=== PATIENT | male | born 1975 | race Asian ===

== ENCOUNTER → 2018-03-04 | Day surgery (SDC) | payer OTHER ==
[~2018-03-04] MED LIST: IV RINGERS,LACTATED 1000ML 1,000 ML IV SCH; LIDOCAINE 1% PF 2 ML VIAL. ID PRN; MIDAZOLAM HCL/PF 2 MG/2 ML VIAL. IV PRN; PROPOFOL 40 ML IV ONE; SIMV40TA3 PO; VITA1TAB3 PO; fentaNYL PF VIAL 100 MCG/2 ML VIAL IV PRN
[2018-03-04 14:10] VITALS: BP 114/69
== END | disposition home or self-care (01) ==
LOC: SURG 12:02
PROVIDERS: ATTEND Internal Medicine Gastroenterology
DX: K64.1 Second degree hemorrhoids (principal); Z90.49 Acquired absence of other specified parts of digestive tract; Z86.19 Personal history of other infectious and parasitic diseases; E78.00 Pure hypercholesterolemia, unspecified; G47.30 Sleep apnea, unspecified; Z86.010 Personal history of colon polyps; Z79.899 Other long term (current) drug therapy; Z98.52 Vasectomy status
CPT/HCPCS: 45378; J2704

== ENCOUNTER → 2018-03-25 | Day surgery (SDC) | payer OTHER ==
[~2018-03-25] MED LIST changes: +HYDROmorphone 2 MG/ML VIAL IV PRN; +MORPHINE SULFATE 2 MG/ML VIAL. IV PRN; +ONDANSETRON PF 4 MG/2 ML VIAL. IV PRN; +PROCHLORPERAZINE 10 MG/2 ML VIAL. IV PRN; +PROPOFOL 20 ML IV ONE; -PROPOFOL 40 ML IV ONE
[2018-03-25 14:05] VITALS: BP 108/62
--- NOTE | 2018-03-26 14:10 | PATHOLOGY ---
[facility] Accession Number: [id number] . 01 Material submitted: . PART A: ANTRAL BIOPSY PART B: DISTAL ESOPHAGUS . 01 Clinical history: . GERD . 02 Diagnosis: A. Gastric biopsies, antrum: - Superficial congestion and slight chronic inflammation with focal intestinal metaplasia. . B. Esophageal biopsies, distal esophagus: - Segments of hyperplastic squamous esophageal mucosa consistent with reflux esophagitis. (JPM:kandace; 03/26/2018) QMS/03/26/2018 . 02 Comment: Sections of the gastric biopsy reveal segments of gastric body mucosa showing superficial congestion and slight chronic inflammation with few minute foci of intestinal metaplasia. A properly controlled immunoperoxidase stain for Helicobacter is negative for Helicobacter organisms. . Sections of the distal esophageal biopsy reveal segments of focally tangentially oriented hyperplastic squamous esophageal mucosa consistent with reflux esophagitis. There is no evidence of Freire's change, dysplasia, or malignancy. (JPM:kandace; 03/26/2018) . . . Special stain performed: Immunoperoxidase stain for Helicobacter on A1 . 02 Electronically signed: . Michael Hopson MD, Pathologist NPI- [id number] . 01 Gross description: . A. Received in formalin labeled "Triny He, antral BX, rule out H. pylori," are 4 segments of toth soft tissue measuring 0.9 x 0.7 x 0.3 cm in aggregate dimensions and ranging from 0.3 to 0.4 cm in maximum dimension. The specimen is submitted entirely in cassette A1. . B. Received in formalin labeled "He Agosto, distal esophagus, rule out Freire's," are 6 segments of toth soft tissue measuring 1.2 x 1.1 x 0.2 cm in aggregate dimensions and ranging from 0.2 to 0.3 cm in maximum dimension. The specimen is submitted entirely in cassette B1. (TSD; 03/25/2018) TOB/TOB . 02 Pathologist provided ICD-10: K29.50, K31.89, K21.0 . 02 CPT . 866332, [id number], [id number] Specimen Comment: A courtesy copy of this report has been sent to Specimen Comment: [phone], . Specimen Comment: Report sent to / DR HUTSON Specimen Comment: A duplicate report has been generated due to demographic updates. Performed at: 01 [facility] [address], [place] [id number] MD Ponce Bird MD Phone: [phone] Performed at: 02 [facility] [address] [place], [place] [id number] MD Michael Hopson MD Phone: [phone]
== END | disposition home or self-care (01) ==
LOC: ENDOS 12:22
PROVIDERS: ATTEND Internal Medicine Gastroenterology
DX: K21.0 Gastro-esophageal reflux disease with esophagitis (principal); K29.50 Unspecified chronic gastritis without bleeding; E78.00 Pure hypercholesterolemia, unspecified; G47.30 Sleep apnea, unspecified; Z86.19 Personal history of other infectious and parasitic diseases; Z79.899 Other long term (current) drug therapy; Z90.49 Acquired absence of other specified parts of digestive tract; Z98.52 Vasectomy status; Z96.698 Presence of other orthopedic joint implants
CPT/HCPCS: 43239; 88305; 88342; J2704

== ENCOUNTER 2019-04-04 16:07 | Inpatient (IN) | payer OTHER ==
[~2019-04-04] VITALS: Ht 172.7 cm; Wt 100.7 kg
[~2019-04-04 16:07] MED LIST changes: -HYDROmorphone 2 MG/ML VIAL IV PRN; -IV RINGERS,LACTATED 1000ML 1,000 ML IV SCH; -LIDOCAINE 1% PF 2 ML VIAL. ID PRN; -MIDAZOLAM HCL/PF 2 MG/2 ML VIAL. IV PRN; -MORPHINE SULFATE 2 MG/ML VIAL. IV PRN; -ONDANSETRON PF 4 MG/2 ML VIAL. IV PRN; -PROCHLORPERAZINE 10 MG/2 ML VIAL. IV PRN; -PROPOFOL 20 ML IV ONE; -fentaNYL PF VIAL 100 MCG/2 ML VIAL IV PRN
[2019-04-04 18:45] VITALS: BP 131/80
[2019-04-04 23:38] VITALS: BP 109/75
[2019-04-05] MEDS ORDERED: zetia (02:41)
[2019-04-05] MEDS ORDERED: zantac (02:41)
[2019-04-05 03:47] VITALS: BP 104/70
[2019-04-05 07:15] VITALS: BP 111/72
[2019-04-05 09:30] VITALS: BP 116/69
[2019-04-05 09:31] VITALS: BP 131/85
[2019-04-05 09:32] VITALS: BP 125/80
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
--- NOTE | 2019-04-05 12:55 | NUR ---
SW following pt for dc planning. Chart reviewed. Pt lives at home with spouse. Pt is a transfer from [facility] and neurology is following. No SW needs identified at this time. SW will be available as needed.
--- NOTE | 2019-04-05 13:44 | RAD ---
MRI Brain without contrast History: Dizziness Technique: Multiplanar, multisequential noncontrast MR imaging was performed of the brain. Comparison: None Findings: There is no evidence of recent infarct or cytotoxic edema. The ventricles, sulci, and cisterns are within normal limits in size and configuration. There is no significant midline shift, intraaxial mass effect, or focal abnormal extra-axial fluid collection. There are couple of small foci of T2 and FLAIR hyperintense signal such as of the left temporal occipital white matter and right frontal white matter. There is no significant hemosiderin deposition of the brain parenchyma. There is preservation of the major intracranial flow-voids at the skull base. The mastoid air cells are aerated. The cerebellar tonsils are normal in location. There is no significant abnormality of the pineal gland or pituitary gland. There is very mild bilateral ethmoid air cell mucosal thickening. There is preserved marrow signal of the clivus. Impression: 1. There is no evidence of recent infarct or intracranial mass effect. There are couple of tiny foci of T2 and FLAIR hyperintense signal abnormality of the supratentorial brain which are nonspecific, may be due to foci of nonspecific gliosis. Electronically signed by: Servando Reyes MD (04/05/2019 1:41 PM) [id number]
[2019-04-05 15:17] VITALS: BP 125/80
--- NOTE | 2019-04-05 16:17 | NUR ---
Pt discharged to home. Transportation provided by pts . Discharge teaching done. Verbalized understanding.
== END 2019-04-05 16:16 | disposition home or self-care (01) | DRG 149 ==
LOC: 6 SOUTH 16:10
PROVIDERS: ADMIT Internal Medicine; ATTEND Internal Medicine
DX: H81.20 Vestibular neuronitis, unspecified ear (principal); E78.5 Hyperlipidemia, unspecified; K21.9 Gastro-esophageal reflux disease without esophagitis; H93.19 Tinnitus, unspecified ear; G47.30 Sleep apnea, unspecified; Z87.19 Personal history of other diseases of the digestive system; Z80.9 Family history of malignant neoplasm, unspecified
CPT/HCPCS: 70551; G0378